=== PATIENT | male | born 1965 | race Caucasian/White ===

== ENCOUNTER 2016-06-19 13:38 | Emergency (ER) | payer BC, OTHER ==
[~2016-06-19] VITALS: Ht 180.3 cm; Wt 95.3 kg
--- NOTE | ~2016-06-19 | EKG ---
[place] [address] [facility] [place] [place] [address] ELECTROCARDIOGRAM REPORT Name: ARIS RICHARD Room #: DEP [facility] [id number] Admission: 06/19/16 Attend Phys: Discharge: 06/19/16 Date of : 65 Report #: [id number] THIS REPORT FOR: //name// [facility] ED Test Date: 2016-06-19 Test Time: 14:10:52 Pat Name: ARIS RICHARD Department: Room: Gender: Blood Tester: [facility] er : 1965 Requested By: Marily Dillard Order Number: [id number] MD: Hai Ruiz Measurements Intervals [place] Rate: 52 P: 54 NH: 146 QRS: 23 QRSD: 95 T: 20 QT: 427 QTc: 397 Interpretive Statements Sinus bradycardia Otherwise no significant abnormality No previous ECG available for comparison Electronically Signed On 06-21-2016 12:39:16 CDT by Hai Ruiz [email or web address] <ELECTRONICALLY SIGNED> By: Hai Ruiz MD, [facility] 06/21/16 1239 1410 1410 Hai Ruiz MD, FACC /EPI
[2016-06-19 13:56] LABS: ABSOLUTE NEUTROPHILS 4.9 thou/uL (1.4-8.2); BASOPHILS 0.5 % (0.0-2.0); HEMOGLOBIN 15.7 gm/dL (14.0-18.0); LYMPHOCYTES 34.3 % (24.0-44.0); MCH 29.9 pg (26.0-34.0); MCV 85.5 fL (80.0-100.0); MONOCYTES 8.1 % (1.0-8.0); PLATELET COUNT 191 thou/uL (150-400); POLYS 55.1 % (36.0-66.0); RBC 5.26 mil/uL (4.50-6.00); RDW 13.2 % (10.5-14.5); WBC 8.8 thou/uL (4.0-11.0)
[2016-06-19 13:57] LABS: MANUAL DIFF NO
[2016-06-19 14:04] LABS: CALCIUM 8.6 mg/dL (8.5-10.1); POTASSIUM 3.8 mmol/L (3.5-5.1)
[2016-06-19 14:59] VITALS: BP 125/72
== END 2016-06-19 15:00 | disposition home or self-care (01) ==
LOC: ER 13:38
PROVIDERS: Emergency Medicine
DX: G51.0 Bell's palsy (principal); F17.210 Nicotine dependence, cigarettes, uncomplicated

== ENCOUNTER 2016-07-06 22:32 | Emergency (ER) | payer BC, OTHER ==
[~2016-07-06] VITALS: Ht 180.3 cm; Wt 90.7 kg
[2016-07-06] MEDS ORDERED: MOBIC15 MG PO (23:36)
[2016-07-06] MEDS ORDERED: CYCLOBENZAPRINE5 MG PO (23:36)
[2016-07-06 23:50] VITALS: BP 168/75
== END 2016-07-06 23:51 | disposition home or self-care (01) ==
LOC: ER 22:32
DX: S29.011A Strain of muscle and tendon of front wall of thorax, initial encounter (principal); F17.210 Nicotine dependence, cigarettes, uncomplicated; Z88.8 Allergy status to other drugs, medicaments and biological substances; X58.XXXA Exposure to other specified factors, initial encounter; Y93.89 Activity, other specified; Y92.89 Other specified places as the place of occurrence of the external cause; Y99.9 Unspecified external cause status

== ENCOUNTER 2021-01-17 12:51 | Emergency (ER) | payer OTHER ==
[~2021-01-17] VITALS: Ht 180.3 cm; Wt 88.5 kg
[~2021-01-17 12:51] MED LIST: CYCLOBENZAPRINE5 MG PO; MOBIC15 MG PO
[2021-01-17] MEDS ORDERED: NOHOMEMEDICATIONS (13:10)
[2021-01-17] MEDS ORDERED: MOBIC15 MG PO (14:14)
[2021-01-17 14:15] VITALS: BP 160/58
== END 2021-01-17 14:15 | disposition home or self-care (01) ==
LOC: ER 12:51
DX: M79.672 Pain in left foot (principal); F17.210 Nicotine dependence, cigarettes, uncomplicated; Z79.899 Other long term (current) drug therapy